=== PATIENT | male | born 1985 | race Caucasian/White ===

== ENCOUNTER 2025-03-23 06:28 | Day surgery (SDC) | payer OTHER, SELFPAY | END 2025-03-23 10:58 | disposition home or self-care (01) | LOC: GI 06:28 | PROVIDERS: ATTENDING PHYSICIAN Student in an Organized Health Care Education/Training Program | DX: Z12.11 Encounter for screening for malignant neoplasm of colon (principal); Z80.0 Family history of malignant neoplasm of digestive organs; K62.1 Rectal polyp | CPT/HCPCS: 45380; 88305 ==